=== PATIENT | female | born 1990 | race African-American/Black ===

== ENCOUNTER 2016-08-14 07:10 | Inpatient (IN) | payer OTHER ==
[2016-08-14] VITALS (7 sets, daily range): BP systolic 113–141; BP diastolic 58–88
[2016-08-15 01:34] VITALS: BP 112/67
[2016-08-15 08:00] VITALS: BP 113/72
[2016-08-15 16:00] VITALS: BP 114/55
[2016-08-16 00:20] VITALS: BP 152/86
[2016-08-16 09:50] VITALS: BP 128/80
--- NOTE | 2016-08-16 11:10 | Provider's Discharge Care Plan ---
Problem, Goal, Plan Problem List 1. care following vaginal delivery Goals: Improve disease control Instructions: Follow up as needed
--- NOTE | 2016-08-16 11:10 | Provider's Discharge Care Plan ---
Problem, Goal, Plan Problem List 1. care following vaginal delivery Goals: Improve disease control Instructions: Follow up as needed
== END 2016-08-16 11:45 | disposition home or self-care (01) | DRG 560 ==
LOC: OB SRH 07:10
PROVIDERS: ADMIT Obstetrics & Gynecology
PROC: 0KQM0ZZ Repair Perineum Muscle, Open Approach (ICD-10-PCS; principal; 2016-08-14)
PROC: 10D07Z6 Extraction of Products of Conception, Vacuum, Via Natural or Artificial Opening (ICD-10-PCS; principal; 2016-08-14)
PROC: 3E033VJ Introduction of Other Hormone into Peripheral Vein, Percutaneous Approach (ICD-10-PCS; 2016-08-14)
PROC: 3E0234Z Introduction of Serum, Toxoid and Vaccine into Muscle, Percutaneous Approach (ICD-10-PCS; 2016-08-16)
DX: O76 Abnormality in fetal heart rate and rhythm complicating labor and delivery (principal); Z37.0 Single live birth; O70.1 Second degree perineal laceration during delivery; Z3A.39 39 weeks gestation of pregnancy; Z23 Encounter for immunization
CPT/HCPCS: 29255; 40012; 40021; 81043; 81260; 82997; 83411; 83475; 84038; 90001; 90074; 90155; 91004; 91162; 91163; 95059